=== PATIENT | female | born 1950 | race Caucasian/White ===

== ENCOUNTER → 2017-11-20 | Outpatient (CLI) | payer MEDICARE, OTHER | END | disposition home or self-care (01) | LOC: PETCFH 10:49 | PROVIDERS: ATTEND Internal Medicine Gastroenterology | DX: K44.9 Diaphragmatic hernia without obstruction or gangrene (principal); R14.0 Abdominal distension (gaseous); R14.2 Eructation | CPT/HCPCS: 78264; A9541 ==

== ENCOUNTER → 2017-12-26 | Outpatient (CLI) | payer MEDICARE, OTHER ==
[~2017-12-26] MED LIST: ASCO10004 PO; CALC-533 PO; CHOL200024 PO; CYAN50002 PO; Iron PO; LORA0.5T PO; MILK150C2 PO; PARO10TA56 PO; QUET25TA5 PO; RANI300T PO; THYR60TA PO; TURM500C4 PO; VITA1CAP PO; ZINC50TA28 PO; [UNRECOGNIZED DRUG - CODE] PO
== END | disposition home or self-care (01) ==
LOC: STAR 13:00
PROVIDERS: ATTEND Thoracic Surgery (Cardiothoracic Vascular Surgery)
DX: Z01.818 Encounter for other preprocedural examination (principal)
CPT/HCPCS: 93005

== ENCOUNTER 2018-01-08 06:08 | Observation (INO) | payer MEDICARE, OTHER ==
[2017-12-26 14:16] VITALS: BP 121/85
[~2018-01-08] VITALS: Ht 167.6 cm; Wt 92.0 kg
[2018-01-08] MEDS ORDERED: FENTANYL PF 250 MCG/5ML ONE (06:32)
[2018-01-08] MEDS ORDERED: MIDAZOLAM 1 MG/ML, 2ML ONE (06:32)
[2018-01-08] MEDS ORDERED: PROPOFOL 10 MG/ML, 20ML ONE (06:33)
[2018-01-08] MEDS ORDERED: ROCURONIUM 10MG/ML,5ML ONE (06:34)
[2018-01-08] MEDS ORDERED: GLYCOPYRROLATE 0.4 MG/2 ML, 2ML ONE ×2 (06:35→09:02)
[2018-01-08] MEDS ORDERED: ONDANSETRON 2MG/ML, 2ML ONE (06:35)
[2018-01-08] MEDS ORDERED: DEXAMETHASONE 4 MG/ML, 1ML ONE ×2 (06:35)
[2018-01-08] MEDS ORDERED: NEOSTIGMINE 1 MG/ML, 10ML ONE (06:35)
[2018-01-08] MEDS ORDERED: LACTATED RINGERS 1,000 ML IV SCH (06:39)
[2018-01-08] MEDS ORDERED: CLINDAMYCIN 150 MG/ML, 6ML ONE (06:42)
[2018-01-08] MEDS ORDERED: SUCCINYLCHOLINE 20 MG/ML, 10ML ONE (06:59)
[2018-01-08] MEDS ORDERED: hydrALAzine 20 MG/ML, 1ML IV PRN ×2 (07:00→09:30)
[2018-01-08] MEDS ORDERED: MORPHINE SULFATE 4 MG/ML, 1ML IVPush PRN (07:00)
[2018-01-08] MEDS ORDERED: MEPERIDINE/PF 25MG/0.5ML IVPush PRN (07:00)
[2018-01-08] MEDS ORDERED: PROMETHAZINE 25 MG/ML, 1ML IM PRN ×3 (07:00→09:30)
[2018-01-08] MEDS ORDERED: HYDROmorphone 1 MG/ML, 1ML IV PRN (07:00)
[2018-01-08] MEDS ORDERED: ACETAMINOPHEN 325 MG TABLET PO PRN (07:00)
[2018-01-08] MEDS ORDERED: ONDANSETRON ODT 8 MG PO PRN (07:00)
[2018-01-08] MEDS ORDERED: ONDANSETRON 2MG/ML, 2ML IV PRN (07:00)
[2018-01-08] MEDS ORDERED: PROMETHAZINE 25 MG/ML, 1ML IV PRN (07:00)
[2018-01-08] MEDS ORDERED: LABETALOL 5MG/ML, 20ML IV PRN (07:00)
[2018-01-08] MEDS ORDERED: BUPIVACAINE/PF-EPI 0.5% 1:200K ONE (07:03)
[2018-01-08] MEDS ORDERED: FENTANYL PF 100 MCG/2ML ONE ×3 (08:28→09:37)
[2018-01-08] MEDS: LACTATED RINGERS 1,000 ML IV SCH ×2 (09:18→19:41)
[2018-01-08] MEDS ORDERED: MORPHINE SULFATE 4 MG/ML, 1ML IV PRN (09:30)
[2018-01-08] MEDS ORDERED: ONDANSETRON 2MG/ML, 2ML IVPush PRN (09:30)
[2018-01-08] MEDS ORDERED: ENALAPRILAT 1.25 MG/ML, 2ML IV PRN (09:30)
[2018-01-08] MEDS ORDERED: LORazepam 2 MG/ML, 1ML IV PRN (09:30)
[2018-01-08] MEDS ORDERED: PROMETHAZINE 12.5 MG SUPP PR PRN (09:30)
[2018-01-08] MEDS ORDERED: OXYcodone 5 MG/5 ML ORAL.SOL UDC ONE (09:37)
[2018-01-08] MEDS: FENTANYL PF 100 MCG/2ML IV PRN ×3 (09:40→09:55)
[2018-01-08] MEDS: OXYcodone 5 MG/5 ML ORAL.SOL UDC PO PRN ×2 (09:40→13:56)
[2018-01-08] MEDS: DIAZEPAM 5 MG/ML, 2ML IV PRN ×2 (10:02→21:25)
[2018-01-08 10:45] VITALS: BP 123/65
[2018-01-08] MEDS: FAMOTIDINE 20 MG/2 ML IV SCH ×2 (12:30→21:25)
[2018-01-08 13:45] VITALS: BP 134/59
[2018-01-08] MEDS: HYDROcodone/APAP 7.5-325MG/15ML UDC PO PRN ×2 (17:38→21:53)
[2018-01-08 18:48] VITALS: BP 108/56
[2018-01-09 00:44] VITALS: BP 107/49
[2018-01-09] MEDS: HYDROcodone/APAP 7.5-325MG/15ML UDC PO PRN ×2 (02:36→09:18)
[2018-01-09] MEDS: LACTATED RINGERS 1,000 ML IV SCH (03:30)
[2018-01-09 04:32] VITALS: BP 109/54
[2018-01-09 07:42] VITALS: BP 124/59
== END 2018-01-09 09:45 | disposition home or self-care (01) ==
LOC: OUT 06:08 → ORIP 09:18 → 4NOR 10:32
PROVIDERS: ADMIT Thoracic Surgery (Cardiothoracic Vascular Surgery); ATTEND Thoracic Surgery (Cardiothoracic Vascular Surgery)
DX: K44.9 Diaphragmatic hernia without obstruction or gangrene (principal); K21.9 Gastro-esophageal reflux disease without esophagitis
CPT/HCPCS: 43282; 96374; 96375; 96376; G0378; J0330; J1100; J2250; J2405; J2704; J2710; J3010; J3360; J7120; Q4116; S0028; S0077